=== PATIENT | female | born 1990 | race Caucasian/White ===

== ENCOUNTER 2022-02-23 06:08 | Inpatient (IN) ==
[2022-02-23 06:24] LABS: Hemoglobin 6.7 g/dL (12.0-16.0); Mean Platelet Volume 9.6 fL (7.4-10.4); Platelet Count 251 10^3/uL (150-450)
[2022-02-23] MEDS ORDERED: fentaNYL 100 mcg/2 ml 50 MCG/ML VIAL ONE ×3 (06:40→12:52)
[2022-02-23 06:45] LABS: Albumin 2.2 g/dL (3.2-5.2); Albumin/Globulin Ratio 1.4 (1-3); Calcium 7.7 mg/dL (8.6-10.3); Globulin 1.6 g/dL (2-4); Potassium 3.6 mmol/L (3.5-5.0); Total Bilirubin 0.3 mg/dL (0.2-1.0); Total Protein 3.8 g/dL (6.4-8.9); eGFR CKD-EPI 71.2 (>60)
[2022-02-23 06:46] LABS: Activated Partial Thrombo Time 24.9 seconds (26.0-38.0); Fibrinogen 178.6 mg/dL (110.8-404.3); INR 1.04 (0.86-1.15)
[2022-02-23 06:50] LABS: ABS Basophils 0.1 10^3/ul (0-0.2); ABS Lymphocytes 2.6 10^3/ul (1.0-4.8); ABS Monocytes 1.2 10^3/ul (0-0.8); ABS Neutrophils 18.8 10^3/ul (1.5-7.7); Eosinophil % 0.2 %; Hematocrit 21 % (35-47); Hemoglobin 6.7 g/dL (12.0-16.0); Lymphocyte % 11.5 %; Mean Corpuscular HGB Conc 33 g/dL (31-36); Mean Corpuscular Hemoglobin 30 pg (27-31); Mean Corpuscular Volume 91 fL (80-97); Mean Platelet Volume 9.9 fL (7.4-10.4); Platelet Count 253 10^3/uL (150-450); Red Blood Count 2.25 10^6 /uL (3.70-4.87); Red Cell Distribution Width 14 % (10-15); White Blood Count 22.8 10^3/uL (3.5-10.8)
[2022-02-23] MEDS ORDERED: Propofol 10 MG/ML 20 ML BTL ONE (07:16)
[2022-02-23] MEDS ORDERED: Lidocaine 2% PF 10 ML AMP ONE (07:16)
[2022-02-23] MEDS ORDERED: Dexamethasone IV 4 MG/ML VIAL 1 ml VIAL ONE (07:16)
[2022-02-23] MEDS ORDERED: EPHEDrine (Pressors) 50 MG/ML VIAL ONE (07:16)
[2022-02-23] MEDS ORDERED: Succinylcholine 200 mg VIAL 20 mg/ml 10 ml VIAL (200 mg) ONE (07:16)
[2022-02-23] MEDS ORDERED: Phenylephrine IV 10 MG/ML 1 ml VIAL ONE ×2 (07:24→08:08)
[2022-02-23] MEDS ORDERED: Midazolam 2 mg/2 ml VIAL 1 mg/ml 2 ml VIAL (2 mg) ONE (07:26)
[2022-02-23] MEDS ORDERED: Sodium Citrate/Citric Acid LIQ 15 ML UDC ONE (07:29)
[2022-02-23] MEDS ORDERED: Calcium CHLORIDE 10% SYRINGE 1 GM/10 ML ONE (07:29)
[2022-02-23] MEDS ORDERED: Sodium Bicarbonate 8.4% VIAL 1 MEQ/ML 50 ml VIAL (50 meq) ONE (07:29)
[2022-02-23] MEDS ORDERED: Carboprost Tromethamine 250 mcg 1 ml VIAL ONE (07:30)
[2022-02-23] MEDS ORDERED: Rocuronium 50 mg VIAL 10 mg/ml 5 ml VIAL (50 mg) ONE ×2 (07:32→09:37)
[2022-02-23] MEDS ORDERED: OXYTOCIN IVPB ONE (07:33)
[2022-02-23] MEDS ORDERED: LACTATED RINGERS IVPB ONE (07:33)
[2022-02-23] MEDS ORDERED: ceFOXitin 2 GM IVPREMIX 2 GM/50 ML BAG ONE (07:42)
[2022-02-23] MEDS ORDERED: ceFAZolin VIAL VIAL ONE (08:08)
[2022-02-23 08:14] LABS: PCO2 Arterial 32 mmHg (35-45); PO2 Arterial 456 mmHg (80-100)
[2022-02-23] MEDS ORDERED: Glycopyrrolate IV 0.2 MG/ML 1 ML VIAL ONE (08:47)
[2022-02-23 08:53] LABS: PCO2 Arterial 32 mmHg (35-45); PO2 Arterial 367 mmHg (80-100)
[2022-02-23 09:31] LABS: Hematocrit 33 % (35-47); Hemoglobin 11.3 g/dL (12.0-16.0)
[2022-02-23] MEDS ORDERED: Midazolam 5 mg/5 ml VIAL 1 mg/ml 5 ml VIAL (5 mg) ONE (09:49)
[2022-02-23] MEDS ORDERED: fentaNYL 250 mcg/5 ml 50 MCG/ML 5 ml VIAL (250 MCG) ONE (09:50)
[2022-02-23] MEDS ORDERED: Heparin 2 UNITS/ML IVPREMIX 0 UNIT/0 ML BAG IV ONE (09:59)
[2022-02-23] MEDS ORDERED: Lidocaine 1% VIAL 10 MG/ML VIAL ONE (09:59)
[2022-02-23] MEDS ORDERED: Iohexol 350 (CONTRAST) 200 ML MDV IV ONE (10:02)
[2022-02-23] MEDS ORDERED: Heparin 2 UNITS/ML 1000 mls 2,000 ML IV ONE (10:02)
[2022-02-23] MEDS ORDERED: Gelfoam Sponge SIZE 100 SPONGE ONE (10:02)
[2022-02-23] MEDS ORDERED: Gelfoam 12-7 ADSORBABL SPONGE ONE ×2 (10:02→10:04)
[2022-02-23] MEDS ORDERED: nitroGLYCERIN DRIP 25,000 MCG/250 ML BTL ONE (10:08)
[2022-02-23] MEDS ORDERED: Piperacillin/Tazobac ADVAN 3.375 GM in NS 0.9% 100 ml BAG 100 ML IV ONE (11:57)
[2022-02-23] MEDS ORDERED: Zosyn per Pharmacy NOTE FOLLOW UP SCH (12:00)
[2022-02-23 12:16] LABS: PCO2 Arterial 32 mmHg (35-45); PO2 Arterial 176 mmHg (80-100)
[2022-02-23] MEDS ORDERED: Artificial Tear OPHTH.OINT 3.5 GM BOTH EYES PRN (12:28)
[2022-02-23 12:39] LABS: ABS Lymphocytes 0.8 10^3/ul (1.0-4.8); ABS Monocytes 0.6 10^3/ul (0-0.8); ABS Neutrophils 6.6 10^3/ul (1.5-7.7); Eosinophil % 0.2 %; Hematocrit 29 % (35-47); Mean Corpuscular HGB Conc 35 g/dL (31-36); Mean Corpuscular Hemoglobin 29 pg (27-31); Mean Corpuscular Volume 83 fL (80-97); Mean Platelet Volume 8.4 fL (7.4-10.4); Platelet Count 74 10^3/uL (150-450); Red Cell Distribution Width 16 % (10-15)
[2022-02-23] MEDS ORDERED: CALCIUM GLUCONATE 1GM/50ML NS 1 GM/50 ML BAG IV ONE (12:40)
[2022-02-23 12:44] LABS: Activated Partial Thrombo Time 26.9 seconds (26.0-38.0); Fibrinogen 199.8 mg/dL (110.8-404.3); INR 1.12 (0.86-1.15)
[2022-02-23] MEDS ORDERED: Propofol 10 mg/ml 100 ML BTL 100 ML IV SCH (13:00)
[2022-02-23 13:14] LABS: Albumin 2.1 g/dL (3.2-5.2); Albumin/Globulin Ratio 1.6 (1-3); Calcium 7.7 mg/dL (8.6-10.3); Globulin 1.3 g/dL (2-4); Potassium 4.1 mmol/L (3.5-5.0); Total Bilirubin 2.8 mg/dL (0.2-1.0); Total Protein 3.4 g/dL (6.4-8.9); eGFR CKD-EPI 119.8 (>60)
[2022-02-23] MEDS ORDERED: Ondansetron 4 mg VIAL 2 MG/ML 2 ml VIAL IV PRN (15:28)
[2022-02-23] MEDS ORDERED: Ondansetron 4 mg VIAL 2 MG/ML 2 ml VIAL ONE (15:30)
[2022-02-23 16:29] LABS: ABS Lymphocytes 0.7 10^3/ul (1.0-4.8); ABS Monocytes 0.5 10^3/ul (0-0.8); ABS Neutrophils 8.1 10^3/ul (1.5-7.7); Eosinophil % 0.1 %; Hematocrit 29 % (35-47); Hemoglobin 9.9 g/dL (12.0-16.0); Mean Corpuscular HGB Conc 35 g/dL (31-36); Mean Corpuscular Hemoglobin 28 pg (27-31); Mean Corpuscular Volume 81 fL (80-97); Mean Platelet Volume 8.3 fL (7.4-10.4); Platelet Count 75 10^3/uL (150-450); Red Blood Count 3.51 10^6 /uL (3.70-4.87); Red Cell Distribution Width 17 % (10-15); White Blood Count 9.3 10^3/uL (3.5-10.8)
[2022-02-23] MEDS ORDERED: Furosemide 20 mg/2 ml IV VIAL IV ONE (16:37)
[2022-02-23] MEDS ORDERED: Furosemide 20 mg/2 ml IV VIAL ONE (16:42)
[2022-02-23] MEDS: Acetaminophen IV 1 GM/100ML 100 ML IV PRN (17:24)
[2022-02-23] MEDS: ZOSYN 3.375 GM Q8H per EXTENDED INFUSION IV SCH (18:33)
[2022-02-23] MEDS: Prochlorperazine 5 mg/ml 2 ml VIAL (10 mg) IV PRN (19:44)
[2022-02-23 20:48] LABS: ABS Lymphocytes 0.7 10^3/ul (1.0-4.8); ABS Monocytes 0.5 10^3/ul (0-0.8); ABS Neutrophils 9.5 10^3/ul (1.5-7.7); Hematocrit 29 % (35-47); Hemoglobin 10.1 g/dL (12.0-16.0); Lymphocyte % 6.5 %; Mean Corpuscular HGB Conc 35 g/dL (31-36); Mean Corpuscular Hemoglobin 28 pg (27-31); Mean Corpuscular Volume 81 fL (80-97); Mean Platelet Volume 8.5 fL (7.4-10.4); Platelet Count 78 10^3/uL (150-450); Red Blood Count 3.58 10^6 /uL (3.70-4.87); Red Cell Distribution Width 16 % (10-15); White Blood Count 10.7 10^3/uL (3.5-10.8)
[2022-02-23 21:14] LABS: Potassium 3.7 mmol/L (3.5-5.0); eGFR CKD-EPI 105.7 (>60)
[2022-02-23] MEDS ORDERED: Magnesium Sulfate IV 1GM/100ML 1 GM/100 ML BAG IV ONE (21:39)
[2022-02-23] MEDS ORDERED: KCL 20 MEQ/100 ML IVPREMIX 20 MEQ/100 ML BAG IV ONE (21:39)
[2022-02-23 21:58] LABS: Magnesium 1.1 mg/dL (1.9-2.7)
[2022-02-23 22:13] LABS: TSH Ultra Thyroid Stim Horm 1.95 mcIU/mL (0.34-5.60)
[2022-02-23] MEDS ORDERED: Magnesium Sulfate 2 gm BAG 2 GM/50 ML BAG IVPB ONE (22:41)
[2022-02-24] MEDS: ZOSYN 3.375 GM Q8H per EXTENDED INFUSION IV SCH ×2 (02:00→10:32)
[2022-02-24] MEDS: Acetaminophen IV 1 GM/100ML 100 ML IV PRN ×2 (04:04→10:35)
[2022-02-24] MEDS: Prochlorperazine 5 mg/ml 2 ml VIAL (10 mg) IV PRN (04:27)
[2022-02-24 04:32] LABS: ABS Monocytes 0.5 10^3/ul (0-0.8); ABS Neutrophils 9.1 10^3/ul (1.5-7.7); Hematocrit 27 % (35-47); Hemoglobin 9.2 g/dL (12.0-16.0); Lymphocyte % 9.7 %; Mean Corpuscular HGB Conc 35 g/dL (31-36); Mean Corpuscular Hemoglobin 28 pg (27-31); Mean Corpuscular Volume 80 fL (80-97); Mean Platelet Volume 8.6 fL (7.4-10.4); Platelet Count 91 10^3/uL (150-450); Red Blood Count 3.33 10^6 /uL (3.70-4.87); Red Cell Distribution Width 17 % (10-15); White Blood Count 10.7 10^3/uL (3.5-10.8)
[2022-02-24 05:20] LABS: Calcium 7.6 mg/dL (8.6-10.3); Magnesium 2.3 mg/dL (1.9-2.7); Potassium 4.2 mmol/L (3.5-5.0); eGFR CKD-EPI 96.6 (>60)
[2022-02-24 08:40] LABS: Albumin 2.3 g/dL (3.2-5.2); Albumin/Globulin Ratio 1.4 (1-3); Direct Bilirubin 0.2 mg/dL (0.03-0.18); Globulin 1.6 g/dL (2-4); Indirect Bilirubin 0.8 mg/dL (0.3-1.0); Total Protein 3.9 g/dL (6.4-8.9)
[2022-02-24] MEDS ORDERED: Pantoprazole VIAL 40 MG VIAL IV SCH (09:00)
[2022-02-24 09:45] LABS: Hematocrit 24 % (35-47); Hemoglobin 8.3 g/dL (12.0-16.0)
[2022-02-24] MEDS ORDERED: Dibucaine 1% OINT 28.35 GM TUBE PR PRN (16:11)
[2022-02-24] MEDS ORDERED: Glycerin ADULT 2.4 gm SUPP PR PRN (16:11)
[2022-02-24] MEDS ORDERED: Witch Hazel PAD JAR TOPICAL PRN (16:11)
[2022-02-24] MEDS ORDERED: Lactated Ringers 1000 ml BAG 1,000 ML IV SCH (17:00)
[2022-02-24 21:53] LABS: ABS Eosinophils 0.1 10^3/ul (0-0.6); ABS Lymphocytes 0.8 10^3/ul (1.0-4.8); ABS Monocytes 0.3 10^3/ul (0-0.8); ABS Neutrophils 7.3 10^3/ul (1.5-7.7); Eosinophil % 0.6 %; Hematocrit 23 % (35-47); Mean Corpuscular HGB Conc 34 g/dL (31-36); Mean Corpuscular Hemoglobin 28 pg (27-31); Mean Corpuscular Volume 81 fL (80-97); Mean Platelet Volume 8.4 fL (7.4-10.4); Platelet Count 91 10^3/uL (150-450); Red Blood Count 2.88 10^6 /uL (3.70-4.87); Red Cell Distribution Width 17 % (10-15); White Blood Count 8.4 10^3/uL (3.5-10.8)
[2022-02-24] MEDS ORDERED: Clindamycin 900 MG IVPREMIX- Q8H IVPB SCH (22:00)
[2022-02-24 22:07] LABS: Calcium 7.4 mg/dL (8.6-10.3); Potassium 3.9 mmol/L (3.5-5.0); eGFR CKD-EPI 102.5 (>60)
[2022-02-24] MEDS: NS 0.9% IVPB SCH (22:10)
[2022-02-24] MEDS: GENTAMICIN ADULT IVPB SCH (22:10)
[2022-02-25 06:56] LABS: ABS Eosinophils 0.2 10^3/ul (0-0.6); ABS Lymphocytes 0.9 10^3/ul (1.0-4.8); ABS Monocytes 0.3 10^3/ul (0-0.8); ABS Neutrophils 5.7 10^3/ul (1.5-7.7); Eosinophil % 2.1 %; Hematocrit 21 % (35-47); Hemoglobin 7.4 g/dL (12.0-16.0); Lymphocyte % 12.6 %; Mean Corpuscular HGB Conc 35 g/dL (31-36); Mean Corpuscular Hemoglobin 29 pg (27-31); Mean Corpuscular Volume 82 fL (80-97); Mean Platelet Volume 8.5 fL (7.4-10.4); Platelet Count 92 10^3/uL (150-450); Red Blood Count 2.56 10^6 /uL (3.70-4.87); Red Cell Distribution Width 16 % (10-15); White Blood Count 7.1 10^3/uL (3.5-10.8)
[2022-02-25] MEDS: Clindamycin 900 MG IVPREMIX- Q8H IVPB SCH ×2 (08:02→15:35)
[2022-02-25 17:34] LABS: ABS Eosinophils 0.2 10^3/ul (0-0.6); ABS Lymphocytes 1.1 10^3/ul (1.0-4.8); ABS Monocytes 0.3 10^3/ul (0-0.8); Eosinophil % 2.9 %; Hematocrit 21 % (35-47); Hemoglobin 7.2 g/dL (12.0-16.0); Lymphocyte % 14.5 %; Mean Corpuscular HGB Conc 34 g/dL (31-36); Mean Corpuscular Hemoglobin 28 pg (27-31); Mean Corpuscular Volume 83 fL (80-97); Mean Platelet Volume 8.1 fL (7.4-10.4); Nucleated Red Blood Cells % 0.1; Platelet Count 121 10^3/uL (150-450); Red Blood Count 2.57 10^6 /uL (3.70-4.87); Red Cell Distribution Width 16 % (10-15); White Blood Count 7.7 10^3/uL (3.5-10.8)
[2022-02-25] MEDS: NS 0.9% IVPB SCH (22:20)
[2022-02-25] MEDS: GENTAMICIN ADULT IVPB SCH (22:20)
[2022-02-26] MEDS: Clindamycin 900 MG IVPREMIX- Q8H IVPB SCH ×2 (00:13→07:31)
[2022-02-26] MEDS ORDERED: NS 0.9% 100 ml BAG 100 ML ONE (13:14)
[2022-02-26] MEDS ORDERED: Iron Sucrose 200 MG in NS 0.9% 100 ml BAG 100 ML IVPB ONE (14:00)
[2022-02-26 14:06] LABS: Hematocrit 22 % (35-47); Hemoglobin 7.4 g/dL (12.0-16.0)
[2022-02-27 07:02] LABS: Hematocrit 25 % (35-47); Hemoglobin 8.6 g/dL (12.0-16.0)
[2022-02-28 11:44] VITALS: BP 128/60
== END 2022-02-28 12:40 | disposition home or self-care (01) | DRG 817 ==
LOC: ED 06:08 → OR 08:11 → ICU 12:22 → MCHOB 02-24 15:23
PROVIDERS: ADMIT Obstetrics & Gynecology; ATTEND Obstetrics & Gynecology
PROC: ANG.UFE (2022-02-23 10:25)